=== PATIENT | male | born 1975 | race Caucasian/White ===

== ENCOUNTER 2023-08-27 07:09 | Emergency (ER) | payer MEDICAID ==
[~2023-08-27] VITALS: Ht 170.2 cm; Wt 72.8 kg
[2023-08-27 08:25] VITALS: BP 150/86; PULSE 104; RESP 17; TEMP 97.7; O2SAT 97
== END 2023-08-27 08:26 | disposition home or self-care (01) ==
LOC: ER 07:09
DX: S00.83XA Contusion of other part of head, initial encounter (principal); F17.210 Nicotine dependence, cigarettes, uncomplicated; Z59.00 Homelessness unspecified; W22.8XXA Striking against or struck by other objects, initial encounter; Y93.89 Activity, other specified; Y92.89 Other specified places as the place of occurrence of the external cause; Y99.8 Other external cause status
CPT/HCPCS: 70450

== ENCOUNTER 2023-11-08 14:10 | Emergency (ER) | payer MEDICAID ==
[~2023-11-08] VITALS: Ht 170.2 cm; Wt 71.3 kg
[2023-11-08] MEDS: KETOROLAC TROMETH 60MG/2ML VIAL IM ONE (15:37)
[2023-11-08] MEDS: TETANUS-DIPTH-ACEL PERTUSSIS 0.5ML SYR Tdap IM ONE (15:38)
[2023-11-08 15:39] VITALS: BP 127/85; PULSE 95; RESP 18; TEMP 97.5; O2SAT 97
[2023-11-08] MEDS ORDERED: ACET500T58 PO (16:01)
== END 2023-11-08 16:07 | disposition home or self-care (01) ==
LOC: ER 14:10
DX: K62.89 Other specified diseases of anus and rectum (principal); R10.84 Generalized abdominal pain; F17.210 Nicotine dependence, cigarettes, uncomplicated; F15.10 Other stimulant abuse, uncomplicated; Z59.00 Homelessness unspecified
CPT/HCPCS: 74018; 90471; 90715; 96372; 99284; J1885

== ENCOUNTER 2024-05-27 06:33 | Emergency (ER) | payer MEDICAID ==
[~2024-05-27] VITALS: Ht 170.2 cm; Wt 75.2 kg
[~2024-05-27 06:33] MED LIST: ACET500T58 PO
[2024-05-27 07:29] VITALS: BP 123/84; PULSE 108; RESP 18; TEMP 98.5; O2SAT 97
[2024-05-27] MEDS ORDERED: IBUP-1455 PO (08:01)
--- NOTE | 2024-05-27 08:02 | ED.PDOC ---
HPI (NEURO) HPI Comments This is a pleasant 48-year-old male that presents with a chief complaint of an atraumatic head it that is described as generalized in his rated as moderate. The pain is rated 5/10 and has not taken medications for the symptoms listed above. Has been seen for the same complaint multiple times. Denies any other complaints or concerns Denies fever, chills, night sweats Denies persistent nausea Denies vomiting Denies thunderclap headache Denies photophobia, phonophobia Denies head trauma around the time headache started Denies family history of brain issues persistent headaches Denies taking any blood thinner medication Denies vision/hearing changes Denies focal loss of strength/sensation or changes in speech Chief Complaint: Headache Time Seen by MD: 06:53 Primary Care Provider: UNKNOWN Reviewed Notes: Nurses Notes, Medications, Allergies Information Source: Patient Mode of Arrival: Ambulatory Past Medical History PAST MEDICAL HISTORY: Denies Surgical History: Denies all surgeries Family History Family History: No family hx of Cancer, No family hx of DM, No family hx of Heart taryn Social History Smoker: Cigarettes Alcohol: Denies ETOH Use Drugs: Methamphetamine Lives In: Homeless All Other Systems: Reviewed and Negative (per hpi) Physical Exam General Appearance: No Apparent Distress, Normal HEENT: Head (Normocephalic atraumatic), Normal ENT Inspection, Pharynx Normal, TMs Normal Neck: Full Range of Motion, Non-Tender, Normal, Normal Inspection Respiratory: Chest Non-Tender, Lungs Clear, No Accessory Muscle Use, No Respir atory Distress, Normal Breath Sounds Cardiovascular: No Edema, No JVD, No Murmur, No Gallop, Normal Peripheral Pulses, Regular Rate/Rhythm Breast Exam: Deferred Gastrointestinal: No Organomegaly, Non Tender, No Pulsatile Mass, Normal Bowel Sounds, Soft Genitalia: Deferred Pelvic: Deferred Rectal: Deferred Extremities: No calf tenderness, Normal capillary refill, Normal inspection, Normal range of motion, Non-tender, No pedal edema Musculoskeletal : Apperance: Normal Neurologic: Alert, hospital chief executive officer II-XII nml as Tested, No Motor Deficits, Normal Affect, Normal Mood, No Sensory Deficits Cerebellar Function: Normal Reflexes: Normal Skin: Dry, Normal Color, Warm Lymphatic: No Adenopathy Was a procedure done? Was a procedure done?: No Differential Diagnosis (SZ) Seizure: Other Headache: Migraine X-Ray, Labs, Meds, VS Vital Signs Date Time Temp Pulse Resp B/P (MAP) Pulse Ox O2 Delivery O2 Flow Rate FiO2 05/27/24 07:29 98.5 108 18 123/84 (97) 97 98.5 05/27/24 07:29 108 18 97 Room Air 05/27/24 06:35 98.5 108 18 123/84 (97) 97 X-Ray, Labs, Meds, VS Comment The patients history and physical exam are consistent with a benign headache. Likely migraine Considered subarachnoid hemorrhage however this is less likely given that the patient has had a similar and worst headaches in the past, the lack of trauma, and the slow onset with intermittent symptomatology. Low suspicion of meningitis given the afebrile, well-appearing, and without meningismus on exam. Additionally no history of recent trauma prior to the patient experiencing this headache. Finally, the patient does not report any positional exacerbation with the headaches and has not had a recent spinal procedures therefore my suspicion for central causes and post procedural etiologies of headaches are less likely. Low concern for meningitis as there are no signs of fever, altered mentation nor neck stiffness. Brudzinski/Kernig negative. Low concern for subarachnoid hemorrhage there are no signs of a thunderclap headache Low concern for subdural hematoma and intracranial hemorrhage as there is no history of trauma, progressively worsening headache and neuroexam is unremarkable. Low suspicion for brain tumor as neuroexam is unremarkable. No nausea vomiting. No morning or nocturnal headache. No suspicion for temporal arteritis as there are no signs of fever, muscle weakness, jaw claudication, no transient visual loss. Given benign exam and history, CT imaging was discussed with the patient and was deferred during this visit. While in the ED, the patient declined labs and medication. Patient was overall well-appearing and hemodynamically stable in the ED. They were able to ambulate and continued to have a nonfocal exam in the emergency department. Discussed continued symptomatic treatment at home. Recommended follow up with PCP. Return precautions to the ED discussed Counseled to start headache diary Recommended headache elimination diet Avoid prolonged periods of fasting Drink plenty of water Exercise daily, limit screen time Aim to sleep 8 to 9 hours per night, practice good hygiene ED precautions given Time of 1ST Reevaluation: 07:52 Reevaluation 1ST: Improved Patient Education/Counseling: Diagnosis, Treatment Family Education/Counseling: Diagnosis, Treatment Departure 1 Departure Time of Disposition: 08:01 Impression: Primary Impression: Headache Qualified Codes: R51.9 - Headache, unspecified Disposition: 01 HOME / SELF CARE / HOMELESS Condition: Stable e-Prescriptions Ibuprofen Micronized (Ibuprofen) 800 Mg Tab 800 MG PO TID for 7 Days, #21 TAB 0 Refills Prov: AMADOR BARBER NP 05/27/24 Discharged With: Self Critical Care Note Critical Care Time?: No Stability Stability form required: No Heart Score Heart Score: Heart Score Response (Comments) Value History N/A 0 EKG N/A 0 Age N/A 0 Risk Factors N/A 0 Troponin N/A 0 Total 0 AMADOR BARBER NP May 27, 2024 08:02
== END 2024-05-27 08:02 | disposition home or self-care (01) ==
LOC: ER 06:33
DX: R51.9 Headache, unspecified (principal); F17.210 Nicotine dependence, cigarettes, uncomplicated

== ENCOUNTER 2024-09-22 11:21 | Emergency (ER) | payer MEDICAID ==
[~2024-09-22] VITALS: Ht 170.2 cm; Wt 74.0 kg
[~2024-09-22 11:21] MED LIST changes: +IBUP-1455 PO
[2024-09-22 12:14] VITALS: BP 132/86; PULSE 68; RESP 16; TEMP 98; O2SAT 98
[2024-09-22] MEDS ORDERED: NAPR-746 PO (12:55)
[2024-09-22] MEDS ORDERED: METH-1181 PO (12:55)
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
== END 2024-09-22 12:58 | disposition home or self-care (01) ==
LOC: ER 11:32
DX: M26.601 Right temporomandibular joint disorder, unspecified (principal); F15.10 Other stimulant abuse, uncomplicated; Y08.89XA Assault by other specified means, initial encounter; Y93.89 Activity, other specified; Y92.89 Other specified places as the place of occurrence of the external cause; Y99.8 Other external cause status